=== PATIENT | female | born 1995 | race African-American/Black ===

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

== ENCOUNTER 2017-12-15 04:40 | Inpatient (IN) ==
[2017-12-15] MEDS ORDERED: Naloxone Inj 0.4 MG/ML Vial IV.PUSH PRN (05:14)
[2017-12-15] MEDS ORDERED: Sod Chloride 0.9% Inj 1,000 ML IV.CONT PRN (05:14)
[2017-12-15] MEDS ORDERED: Sodium Chlor 0.9% Inj 500 ML IV.SIG PRN (05:14)
[2017-12-15] MEDS ORDERED: fentaNYL Citrate Inj 100 MCG/2 ML Ampul IV.PUSH PRN (05:14)
[2017-12-15] MEDS ORDERED: Oxytocin 30 Units/500ml Premix 30 UNITS/500 ML BAG IV.SIG ONE (05:14)
--- NOTE | 2017-12-15 05:14 | P.HPOB ---
History of Present Illness Primary Care Physician: UNKNOWN Chief Complaint: contractions History of Present Illness: contractions x 2 days, q3min no vb no lof +FM Weeks Gestation:: 40 Para: 0 : 1 PMFSH - History History Provided By: Patient - Medical History Medical History: Medical History (Last Updated 12/15/17 @ 05:08 by Adriana Murrell MD) Patient denies medical problems - Surgical History Surgical History: Surgical History (Last Updated 12/15/17 @ 05:08 by Adriana Murrell MD) No history of previous surgery - Tobacco History Second Hand Smoke Exposure: No Smoking Status: Never smoker - Alcohol History How Often Do You Have a Drink Containing Alcohol: Never - Substance Use History Substance History: No History of Abuse - Immunization History Tetanus Immunization: Unable to Assess Hx Influenza Vaccine This Season: No Medications and Allergies Allergies Allergy/AdvReac Type Severity Reaction Status Date / Time No Known Allergies Allergy Uncoded 05/10/16 15:20 Exam Vital signs: Vital Signs 12/15/17 04:56 12/15/17 04:59 Temperature 98.0 F Pulse Rate 87 Respiratory Rate 16 Blood Pressure 125/65 Narrative: GENERAL: Well-nourished, well-developed patient. SKIN: Warm and dry. HEAD: Normocephalic and atraumatic. EYES: No scleral icterus. No injection or drainage. ENT: No nasal drainage noted. Mucous membranes pink. Airway patent. NECK: Supple, trachea midline. No JVD. CARDIOVASCULAR: Regular rate and rhythm without murmurs, gallops, or rubs. RESPIRATORY: Breath sounds equal bilaterally. No accessory muscle use. BREASTS: Bilateral exam showed no masses , no retractions, no nipple discharge. ABDOMEN/GI: Abdomen soft, non-tender, bowel sounds present, no rebound, no guarding Gravid to - weeks size Fundal Height: - GENITOURINARY: External Genitalia: intact and normal in appearance BUS glands: - Cervix: Dilatation: 4.5 Effacement: 90 Station: 0 Presentation: vtx Membranes: intact Uterine Contractions: [-] FHT's: Category: [-] Baseline: [-] Reactive: [-] Variability: [-] Decels: [-] EXTREMITIES: No cyanosis or edema. BACK: Nontender without obvious deformity. No CVA tenderness. NEUROLOGICAL: Awake and alert. Motor and sensory grossly within normal limits. Five out of 5 muscle strength in all muscle groups. Normal speech. Caprini VTE Risk Assessment Caprini VTE Risk Assessment: No/Low Risk (score <= 1) Caprini Risk Assessment Model: Point Value = 1 Point Value = 2 Point Value = 3 Point Value = 5 Age 41-60 Minor surgery BMI > 25 kg/m2 Swollen legs Varicose veins or History of unexplained or recurrent spontaneous Oral contraceptives or hormone replacement Sepsis (< 1 month) Serious lung disease, including pneumonia (< 1 month) Abnormal pulmonary function Acute myocardial infarction Congestive heart failure (< 1 month) History of inflammatory bowel disease Medical patient at bed rest Age 61-74 Arthroscopic surgery Major open surgery (> 45 min) Laparoscopic surgery (> 45 min) Malignancy Confined to bed (> 72 hours) Immobilizing plaster cast Central venous access Age >= 75 History of VTE Family history of VTE Factor V Leiden Prothrombin [id number] Lupus anticoagulant Anticardiolipin antibodies Elevated serum homocysteine Heparin-induced thrombocytopenia Other congenital or acquired thrombophilia Stroke (< 1 month) Elective arthroplasty Hip, pelvis, or leg fracture Acute spinal cord injury (< 1 month) Prophylaxis Regimen: Total Risk Factor Score Risk Level Prophylaxis Regimen 0-1 Low Early ambulation 2 Moderate Order ONE of the following: *Sequential Compression Device (SCD) *Heparin 5000 units SQ BID 3-4 Higher Order ONE of the following medications: *Heparin 5000 units SQ TID *Enoxaparin/Lovenox 40 mg SQ daily (WT < 150 kg, CrCl > 30 mL/min) *Enoxaparin/Lovenox 30 mg SQ daily (WT < 150 kg, CrCl > 10-29 mL/min) *Enoxaparin/Lovenox 30 mg SQ BID (WT < 150 kg, CrCl > 30 mL/min) AND/OR *Sequential Compression Device (SCD) 5 or more Highest Order ONE of the following medications: *Heparin 5000 units SQ TID (Preferred with Epidurals) *Enoxaparin/Lovenox 40 mg SQ daily (WT < 150 kg, CrCl > 30 mL/min) *Enoxaparin/Lovenox 30 mg SQ daily (WT < 150 kg, CrCl > 10-29 mL/min) *Enoxaparin/Lovenox 30 mg SQ BID (WT < 150 kg, CrCl > 30 mL/min) AND *Sequential Compression Device (SCD) Assessment and Plan - Plan with IUP @ 40 weeks Labor - admit for delivery GBS negative EFW by guera is 7.5lbs, but this is inaccurate due to the patient being 4.5cm dilated. I discussed the risks of shoulder dystocia with the patient and offered elective LTCD. The patient voices a thorough understanding, and desires to proceed with attempted vaginal delivery.
[2017-12-15] MEDS ORDERED: Citric Acid/Sodium Citrate Liq 30 ML UDC PO SCH (05:15)
[2017-12-15 06:00] LABS: Baso % (Auto) 0.3 % (0.0-2.0); Eos % (Auto) 0.1 % (0.0-4.0); Hematocrit 32.4 % (35.0-46.0); Hemoglobin 10.3 gm/dL (11.6-15.3); Lymph # (Auto) 2.4 th/mm3 (1.0-4.8); Lymph % (Auto) 18.2 % (9.0-44.0); Mean Corpuscular HGB Conc 31.9 % (32.0-36.0); Mean Corpuscular Volume 72.2 fL (80.0-100.0); Mean Platelet Volume 8.9 fL (7.0-11.0); Mono # (Auto) 0.6 th/mm3 (0.0-0.9); Mono % (Auto) 4.6 % (0.0-8.0); Neut # (Auto) 10.3 th/mm3 (1.8-7.7); Neut % (Auto) 76.8 % (16.0-70.0); Platelet Count 284 th/mm3 (150-450); Red Blood Count 4.48 mil/mm3 (4.00-5.30); Red Cell Distribution Width 18.9 % (11.6-17.2); White Blood Count 13.4 th/mm3 (4.0-11.0)
[2017-12-15 06:21] LABS: Bacteria,Urine Rare /hpf; Bilirubin,Urine Negative (Negative); Clarity,Urine Hazy (Clear); Color,Urine Yellow (Yellw/Straw); Glucose,Urine (UA) Negative (Negative); Leukocyte Esterase,Urine Large (Negative); Mucus,Urine Few /lpf (Occasional); Nitrite,Urine Negative (Negative); Specific Gravity,Urine 1.006 (1.002-1.035); Squamous Epithelial Cell,Urine 1 /hpf (0-5)
[2017-12-15 06:22] LABS: Amphetamine Urine With Conf Neg (Neg); Benzodiazepine Urine With Conf Neg (Neg)
[2017-12-15] MEDS: fentaNYL Citrate Inj 100 MCG/2 ML Ampul IV.PUSH PRN ×4 (08:01→13:17)
[2017-12-15] MEDS ORDERED: Lidocaine 1% Inj 50 ML Vial ONE (13:02)
[2017-12-15] MEDS ORDERED: fentaNYL 2MCG-Bupiv 0.125% Epi 150 ML EPIDURAL ONE (15:23)
[2017-12-15] MEDS ORDERED: Oxytocin 30 Units/500ml Premix 30 UNITS/500 ML BAG IV.CONT PRN (16:51)
--- NOTE | 2017-12-15 19:42 | P.OBANTE ---
Objective Vital Signs and I&O: Vital Signs 12/15/17 04:56 12/15/17 04:59 12/15/17 06:06 Temperature 98.0 F 98.8 F Pulse Rate 87 79 Respiratory Rate 16 18 Blood Pressure 125/65 130/74 12/15/17 07:48 12/15/17 07:49 12/15/17 08:47 Temperature 99.1 F 98.6 F Pulse Rate 88 Respiratory Rate 18 16 Blood Pressure 122/74 12/15/17 10:10 12/15/17 12:13 12/15/17 13:56 Temperature 99.1 F 99.0 F 98.8 F Pulse Rate 72 80 Respiratory Rate 16 18 18 Blood Pressure 129/79 127/80 12/15/17 13:57 12/15/17 15:13 12/15/17 15:55 Temperature 98.6 F Pulse Rate 77 74 Respiratory Rate 16 Blood Pressure 130/73 118/73 12/15/17 16:13 12/15/17 16:16 12/15/17 16:34 Temperature 98.5 F Pulse Rate 74 75 93 H Respiratory Rate 16 Blood Pressure 122/57 L 92/60 L 99/43 L 12/15/17 17:00 12/15/17 17:10 12/15/17 17:30 Temperature Pulse Rate 82 78 Respiratory Rate 16 Blood Pressure 113/66 111/65 12/15/17 17:41 12/15/17 18:00 12/15/17 18:15 Temperature 98.6 F Pulse Rate 83 Respiratory Rate 16 16 Blood Pressure 115/70 12/15/17 18:30 12/15/17 19:00 Temperature Pulse Rate 82 86 Respiratory Rate Blood Pressure 114/68 106/64 Intake & Output 12/15/17 12/15/17 12/16/17 06:59 18:59 06:59 Intake Total 1000 / 1000 Balance 1000 / 1000 Weight 82.554 kg Intake: IV 1000 / 1000 LR 1000 mL Inj 1,000 ML @ 125 1000 / 1000 mls/hr IV.CONT .Q8H [facility] Rx#: [id number] Lab and Micro Results: Laboratory Results - last 24 hr 12/15/17 12/15/17 12/15/17 05:08 05:08 05:25 WBC 13.4 H RBC 4.48 Hgb 10.3 L Hct 32.4 L MCV 72.2 L MCH 23.0 L MCHC 31.9 L RDW 18.9 H Plt Count 284 MPV 8.9 Neut % (Auto) 76.8 H Lymph % (Auto) 18.2 [place] % (Auto) 4.6 Eos % (Auto) 0.1 Baso % (Auto) 0.3 Neut # (Auto) 10.3 H Lymph # (Auto) 2.4 [place] # (Auto) 0.6 Eos # (Auto) 0.0 Baso # (Auto) 0.0 WBC Differential . Differential Comment Auto diff final Urine Color Yellow Urine Clarity Hazy H Urine pH 6.0 Ur Specific [place] 1.006 Urine Protein Negative Urine Glucose (UA) Negative Urine Ketones Trace H Urine Occult Blood Small H Urine Nitrate Negative Urine Bilirubin Negative Urine Urobilinogen Less than 2 Ur Leukocyte Esterase Large H Urine RBC 4 H Urine WBC 12 H Ur Squamous Epith Cells 1 Urine Bacteria Rare H Urine Mucus Few H Micro UA Comment Culture indicated Urine Culture Comments Culture indicated Urine Opiates Screen Neg Ur Barbiturates Screen Neg Ur Amphetamine Screen Neg U Benzodiazepines Scrn Neg Urine Cocaine Screen Neg U Cannabinoids Screen Neg Blood Type Blood Type Recheck 12/15/17 05:25 WBC RBC Hgb Hct MCV MCH MCHC RDW Plt Count MPV Neut % (Auto) Lymph % (Auto) [place] % (Auto) Eos % (Auto) Baso % (Auto) Neut # (Auto) Lymph # (Auto) [place] # (Auto) Eos # (Auto) Baso # (Auto) WBC Differential Differential Comment Urine Color Urine Clarity Urine pH Ur Specific [place] Urine Protein Urine Glucose (UA) Urine Ketones Urine Occult Blood Urine Nitrate Urine Bilirubin Urine Urobilinogen Ur Leukocyte Esterase Urine RBC Urine WBC Ur Squamous Epith Cells Urine Bacteria Urine Mucus Micro UA Comment Urine Culture Comments Urine Opiates Screen Ur Barbiturates Screen Ur Amphetamine Screen U Benzodiazepines Scrn Urine Cocaine Screen U Cannabinoids Screen Blood Type O Positive Blood Type Recheck Required Physical Exam: GENERAL: Well-nourished, well-developed patient. CARDIOVASCULAR: Regular rate and rhythm without murmurs, gallops, or rubs. RESPIRATORY: Breath sounds equal bilaterally. No accessory muscle use. ABDOMEN/GI: Abdomen soft, non-tender. Fundus: [-] GENITOURINARY: External Genitalia: intact and normal in appearance Cervix: ant ] Dilatation: [8] Effacement: [90] Station: [1 caput] Presentation: [vx] Membranes: [ruptured, meconium] Uterine Contractions: [q2-3 min] FHT's: Category: [1] Baseline: [130] Reactive: [yes] Variability: [moderate] Decels: [none] EXTREMITIES: No cyanosis or edema, non-tender, without signs of DVT. Assessment and Plan - Plan with IUP @ 40 weeks Labor - admit for delivery GBS negative EFW by guera is 7.5lbs, but this is inaccurate due to the patient being 4.5cm dilated. I discussed the risks of shoulder dystocia with the patient and offered elective LTCD. The patient voices a thorough understanding, and desires to proceed with attempted vaginal delivery.
--- NOTE | 2017-12-15 21:26 | P.OBANTE ---
Objective Vital Signs and I&O: Vital Signs 12/15/17 04:56 12/15/17 04:59 12/15/17 06:06 Temperature 98.0 F 98.8 F Pulse Rate 87 79 Respiratory Rate 16 18 Blood Pressure 125/65 130/74 12/15/17 07:48 12/15/17 07:49 12/15/17 08:47 Temperature 99.1 F 98.6 F Pulse Rate 88 Respiratory Rate 18 16 Blood Pressure 122/74 12/15/17 10:10 12/15/17 12:13 12/15/17 13:56 Temperature 99.1 F 99.0 F 98.8 F Pulse Rate 72 80 Respiratory Rate 16 18 18 Blood Pressure 129/79 127/80 12/15/17 13:57 12/15/17 15:13 12/15/17 15:55 Temperature 98.6 F Pulse Rate 77 74 Respiratory Rate 16 Blood Pressure 130/73 118/73 12/15/17 16:13 12/15/17 16:16 12/15/17 16:34 Temperature 98.5 F Pulse Rate 74 75 93 H Respiratory Rate 16 Blood Pressure 122/57 L 92/60 L 99/43 L 12/15/17 17:00 12/15/17 17:10 12/15/17 17:30 Temperature Pulse Rate 82 78 Respiratory Rate 16 Blood Pressure 113/66 111/65 12/15/17 17:41 12/15/17 18:00 12/15/17 18:15 Temperature 98.6 F Pulse Rate 83 Respiratory Rate 16 16 Blood Pressure 115/70 12/15/17 18:30 12/15/17 19:00 12/15/17 19:30 Temperature 99.0 F Pulse Rate 82 86 82 Respiratory Rate 18 Blood Pressure 114/68 106/64 97/84 L 12/15/17 20:13 12/15/17 20:20 12/15/17 20:25 Temperature Pulse Rate 87 88 88 Respiratory Rate 16 Blood Pressure 113/65 12/15/17 20:29 12/15/17 20:30 12/15/17 20:40 Temperature 99.1 F Pulse Rate 87 91 H Respiratory Rate Blood Pressure 110/63 12/15/17 20:45 12/15/17 20:50 12/15/17 20:53 Temperature 98.8 F Pulse Rate 88 89 Respiratory Rate Blood Pressure 12/15/17 20:55 12/15/17 21:05 Temperature Pulse Rate 89 87 Respiratory Rate Blood Pressure 118/65 Intake & Output 12/15/17 12/15/17 12/16/17 06:59 18:59 06:59 Intake Total 1000 / 1000 Balance 1000 / 1000 Weight 82.554 kg Intake: IV 1000 / 1000 LR 1000 mL Inj 1,000 ML @ 125 1000 / 1000 mls/hr IV.CONT .Q8H [facility] Rx#: [id number] Lab and Micro Results: Laboratory Results - last 24 hr 12/15/17 12/15/17 12/15/17 05:08 05:08 05:25 WBC 13.4 H RBC 4.48 Hgb 10.3 L Hct 32.4 L MCV 72.2 L MCH 23.0 L MCHC 31.9 L RDW 18.9 H Plt Count 284 MPV 8.9 Neut % (Auto) 76.8 H Lymph % (Auto) 18.2 [place] % (Auto) 4.6 Eos % (Auto) 0.1 Baso % (Auto) 0.3 Neut # (Auto) 10.3 H Lymph # (Auto) 2.4 [place] # (Auto) 0.6 Eos # (Auto) 0.0 Baso # (Auto) 0.0 WBC Differential . Differential Comment Auto diff final Urine Color Yellow Urine Clarity Hazy H Urine pH 6.0 Ur Specific [place] 1.006 Urine Protein Negative Urine Glucose (UA) Negative Urine Ketones Trace H Urine Occult Blood Small H Urine Nitrate Negative Urine Bilirubin Negative Urine Urobilinogen Less than 2 Ur Leukocyte Esterase Large H Urine RBC 4 H Urine WBC 12 H Ur Squamous Epith Cells 1 Urine Bacteria Rare H Urine Mucus Few H Micro UA Comment Culture indicated Urine Culture Comments Culture indicated Urine Opiates Screen Neg Ur Barbiturates Screen Neg Ur Amphetamine Screen Neg U Benzodiazepines Scrn Neg Urine Cocaine Screen Neg U Cannabinoids Screen Neg Blood Type Blood Type Recheck 12/15/17 05:25 WBC RBC Hgb Hct MCV MCH MCHC RDW Plt Count MPV Neut % (Auto) Lymph % (Auto) [place] % (Auto) Eos % (Auto) Baso % (Auto) Neut # (Auto) Lymph # (Auto) [place] # (Auto) Eos # (Auto) Baso # (Auto) WBC Differential Differential Comment Urine Color Urine Clarity Urine pH Ur Specific [place] Urine Protein Urine Glucose (UA) Urine Ketones Urine Occult Blood Urine Nitrate Urine Bilirubin Urine Urobilinogen Ur Leukocyte Esterase Urine RBC Urine WBC Ur Squamous Epith Cells Urine Bacteria Urine Mucus Micro UA Comment Urine Culture Comments Urine Opiates Screen Ur Barbiturates Screen Ur Amphetamine Screen U Benzodiazepines Scrn Urine Cocaine Screen U Cannabinoids Screen Blood Type O Positive Blood Type Recheck Required Physical Exam: GENERAL: Well-nourished, well-developed patient. CARDIOVASCULAR: Regular rate and rhythm without murmurs, gallops, or rubs. RESPIRATORY: Breath sounds equal bilaterally. No accessory muscle use. ABDOMEN/GI: Abdomen soft, non-tender. Fundus: [-] GENITOURINARY: External Genitalia: intact and normal in appearance Cervix: [ant] Dilatation: [8-9] Effacement: [100] Station:+1 caput] Presentation: [vx] Membranes: [mec] Uterine Contractions: [-] FHT's: Category: [2] Baseline: [130] Reactive: [yes] Variability: [mod] Decels: [variables] EXTREMITIES: No cyanosis or edema, non-tender, without signs of DVT. IUPC placed Assessment and Plan - Plan with IUP @ 40 weeks Labor - admit for delivery GBS negative EFW by guera is 7.5lbs, but this is inaccurate due to the patient being 4.5cm dilated. I discussed the risks of shoulder dystocia with the patient and offered elective LTCD. The patient voices a thorough understanding, and desires to proceed with attempted vaginal delivery.
[2017-12-16] MEDS ORDERED: Naloxone Inj 0.4 MG/ML Vial IV.PUSH PRN (02:31)
[2017-12-16] MEDS ORDERED: Benzocaine 20% Top Spray 60 ML Can TOPICAL PRN (02:31)
[2017-12-16] MEDS ORDERED: Bisacodyl 10 MG Supp RECTAL PRN (02:31)
[2017-12-16] MEDS ORDERED: Witch Hazel 50%/Glyderin 12.5% 40 Pad Jar RECTAL PRN (02:31)
[2017-12-16] MEDS ORDERED: Zolpidem Tartrate 5 MG Tablet PO PRN (02:31)
[2017-12-16] MEDS ORDERED: Acetaminophen 325 MG Tablet PO PRN (02:31)
[2017-12-16] MEDS ORDERED: Oxytocin 30 Units/500ml Premix 30 UNITS/500 ML BAG IV.CONT SCH (02:45)
--- NOTE | 2017-12-16 02:45 | P.OBDELI ---
Weeks Gestation: 40 Patient Started Active Labor: Yes Active Labor Start Date: 12/15/17 Medical Induction of Labor: No Artificial Rupture of Membrane: Yes Artificial ROM Date: 12/15/17 Artificial ROM Time: 05:00 Anesthesia: Epidural Episiotomy: none Vaginal Delivery: Normal Presentation: Occiput anterior Nuchal Cord: None Placenta: Spontaneous delivery Laceration: Perineal, 2 deg Repair: Chromic interrupted, Vicryl interrupted Infant: Male Additional Information: 6/9 heavy meconium
[2017-12-16] MEDS ORDERED: Gentamicin Consult Pharmacy 1 EACH OTHER SCH (03:00)
[2017-12-16] MEDS: GENTAMICIN IV.SIG SCH ×3 (04:14→20:29)
[2017-12-16] MEDS: SODIUM CHLOR 0.9% IV.SIG SCH ×3 (04:14→20:29)
[2017-12-16] MEDS: Clindamycin/Dextrose 900 MG/50 ML IVPB IV.SIG SCH ×2 (06:09→14:19)
[2017-12-16] MEDS: Senna/Docusate Sodium 8.6/50 MG Tablet PO SCH ×2 (12:35→20:29)
[2017-12-16] MEDS ORDERED: NS IV.SIG SCH (15:00)
[2017-12-16] MEDS ORDERED: CLINDAMYCIN IV.SIG SCH (15:00)
[2017-12-16] MEDS ORDERED: Clindamycin 900 mg/NS Premix 900 MG/50 ML PIGGYBACK IV.SIG SCH (15:00)
[2017-12-16] MEDS ORDERED: Diphtheria/Tetanus/Pertussis Vaccine Inj 0.5 ML Syringe IM ONE (16:00)
[2017-12-16] MEDS ORDERED: Measles/Mumps/Rubella Vaccine Inj 0.5 ML Vial SQ ONE (16:00)
[2017-12-16 20:58] VITALS: TEMP 98
[2017-12-16] MEDS: Clindamycin 900 mg/NS Premix 900 MG/50 ML PIGGYBACK IV.SIG SCH (23:05)
[2017-12-17] MEDS ORDERED: Pharmacy Ordered Lab Info OTHER ONE ×2 (03:30→05:00)
[2017-12-17] MEDS: SODIUM CHLOR 0.9% IV.SIG SCH (05:09)
[2017-12-17] MEDS: GENTAMICIN IV.SIG SCH (05:09)
[2017-12-17] MEDS: Clindamycin 900 mg/NS Premix 900 MG/50 ML PIGGYBACK IV.SIG SCH (06:35)
[2017-12-17 08:57] VITALS: BP 93/56; PULSE 76; RESP 16
--- NOTE | 2017-12-17 09:07 | P.PNOB ---
Subjective Interval history: day # 1 AFVSS overnight. Decreased lochia. Denies dysuria. No breast tenderness. Appetite good. No nausea or vomiting. Ambulating well. Denies calf pain or shortness of breath. Otherwise, she is doing well this morning and has no other complaints. Objective Vital Signs/I&O: Vital Signs 12/16/17 20:00 12/17/17 08:00 Temperature 98.0 F 98.0 F Pulse Rate 81 76 Respiratory Rate 18 16 Blood Pressure 102/61 93/56 L Intake & Output 12/16/17 12/17/17 12/17/17 18:59 06:59 18:59 Intake Total 102.75 / 102.75 152.75 / 152.75 Balance 102.75 / 102.75 152.75 / 152.75 Intake: IV 102.75 / 102.75 152.75 / 152.75 Cleocin 900 mg/NS Premix 900 mg 50 / 50 In 50 ml @ 100 mls/hr IV.SIG Q8H ANAYA Rx#:[id number] Gentamicin Inj 110 MG In NS Inj 102.75 / 102.75 102.75 / 102.75 100 ML @ 100 mls/hr IV.SIG Q8H ANAYA Rx#:[id number] Result Diagrams: 12/15/17 05:25 Objective Remarks: GENERAL: Well-nourished, well-developed patient. CARDIOVASCULAR: Regular rate and rhythm without murmurs, gallops, or rubs. RESPIRATORY: Breath sounds equal bilaterally. No accessory muscle use. ABDOMEN/GI: Abdomen soft, non-tender. Fundus: Firm, non-tender at umbilicus. GENITOURINARY: Light to moderate bleeding. EXTREMITIES: No cyanosis or edema, non-tender, without signs of DVT. Medications and IVs: Active Medications Acetaminophen (Tylenol) 650 mg PO Q4H PRN PRN Reason: PAIN SCALE 1 TO 2 Al Hydroxide/Mg Hydroxide (Milk Of Magnesia Liq) 30 ml PO Q12H PRN PRN Reason: Mild Constipation Benzocaine (Americaine 20% [place]) 1 spray TOPICAL Q4H PRN PRN Reason: For Perineum Discomfort Last Admin: 12/16/17 16:30 Dose: 1 spray Bisacodyl (Dulcolax Supp) 10 mg RECTAL DAILY PRN PRN Reason: SEVERE CONSITIPATION Diphenhydramine HCl (Benadryl) 25 mg PO ONCE PRN PRN Reason: INSOMNIA Oxytocin (Pitocin 30 Units/Ns 500 Ml Premix) 30 units in 500 mls @ 2 mls/hr IV.CONT TITRATE PRN; Protocol PRN Reason: For induction of labor Last Admin: 12/15/17 17:06 Dose: 2 milliunit/min, 2 mls/hr Pharmacy Profile Note (Gentamicin Consult Pharmacy) 0 mls @ 0 mls/hr OTHER UNSCH [facility] Gentamicin Sulfate 110 mg/ (Sodium Chloride) 102.75 mls @ 100 mls/hr IV.SIG Q8H [facility] Last Admin: 12/17/17 05:09 Dose: 100 mls/hr Clindamycin/Sodium Chloride (Cleocin 900 Mg/Ns Premix) 900 mg in 50 mls @ 100 mls/hr IV.SIG Q8H [facility] Last Admin: 12/17/17 06:35 Dose: 100 mls/hr Ibuprofen (Motrin) 800 mg PO Q8H PRN PRN Reason: For cramping Last Admin: 12/17/17 05:08 Dose: 800 mg Lactulose (Lactulose Liq) 30 ml PO DAILY PRN PRN Reason: SEVERE CONSITIPATION Naloxone HCl (Narcan Inj) 0.1 mg IV.PUSH Q2M PRN PRN Reason: for opiate reversal Ondansetron HCl (Zofran Odt) 4 mg PO Q6H PRN PRN Reason: NAUSEA OR VOMITING Senna/Docusate Sodium (Aura-Colace) 1 tab PO BID [facility] Last Admin: 12/16/17 20:29 Dose: 1 tab Sennosides (Senokot) 17.2 mg PO Q12H PRN PRN Reason: Moderate Constipation Sodium Chloride (Ns Flush) 2 ml IV.FLUSH BID [facility] Last Admin: 12/16/17 20:31 Dose: 2 ml Sodium Chloride (Ns Flush) 2 ml IV.FLUSH PRN PRN PRN Reason: FLUSH AFTER USING IV ACCESS [place]/Glycerin (Tucks Pads) 1 applicatio RECTAL QID PRN PRN Reason: HEMORRHOIDS Last Admin: 12/16/17 16:30 Dose: 1 applicatio Zolpidem Tartrate (Ambien) 5 mg PO HS PRN PRN Reason: SLEEP Assessment and Plan - Plan 22 y/o female who is PPD# 1 s/p . -Continue routine care. -Motrin PRN pain. -Encouraged OOB. Advised pelvic rest for 6 wks. -Re: ctrl, she would like follow up with her outpatient OB. -D/c likely tomorrow. darylw Dr. Bourne
[2017-12-17] MEDS: Senna/Docusate Sodium 8.6/50 MG Tablet PO SCH (09:27)
== END 2017-12-17 10:47 | disposition home or self-care (01) ==
LOC: HOBED 04:40 → H2E 05:16 → H1EA 12-16 03:48
PROVIDERS: ADMIT Obstetrics & Gynecology; ATTEND Obstetrics & Gynecology